=== PATIENT | female | born 1935 | race Caucasian/White ===

== ENCOUNTER 2019-02-12 21:31 | Inpatient (IN) | payer MEDICARE, OTHER ==
[~2019-02-12] VITALS: Ht 152.4 cm; Wt 64.0 kg
--- NOTE | 2019-02-12 22:03 | NUR ---
BIBSF. C/O "HAVING DIARRHEA AND WEAKNESS FOR ABOUT 2 WEEKS NOW, I WAS HERE 10 DAYS AGO FOR GLF" AOX4. AMBULATORY W.ASSISTANCE. -SOB -ACUTE DISTRESS.
[2019-02-12] MEDS ORDERED: ACETAMINOPHEN 325 MG TABLET PO ONE (22:30)
[2019-02-12] MEDS ORDERED: IV NS 0.9% 1,000 ML BAG IV ONE (22:30)
[2019-02-12 22:33] LABS: BASOPHILS % (AUTO) 0.5 % (0.0-2.0); EOSINOPHILS % (AUTO) 0.5 % (0.0-6.0); HEMATOCRIT 39 % (33-45); HEMOGLOBIN 13.3 g/dL (11.5-14.8); LYMPHOCYTES # (AUTO) 1.1 /CMM (0.8-4.8); LYMPHOCYTES % (AUTO) 12.5 % (20.0-44.0); MEAN CORPUSCULAR HGB CONC 34 g/dl (31.0-36.0); MEAN CORPUSCULAR VOLUME 99 fL (82-100); MONOCYTES # (AUTO) 1.1 /CMM (0.1-1.30); MONOCYTES % (AUTO) 12.6 % (2.0-12.0); NEUTROPHILS # (AUTO) 6.4 /CMM (1.8-8.9); NEUTROPHILS % (AUTO) 73.9 % (43.0-81.0); PLATELET COUNT (AUTO) 273 /CMM (150-450); RED BLOOD CELL COUNT(AUTO) 3.98 MIL/uL (4.0-5.2); WHITE BLOOD COUNT (AUTO) 8.7 K/uL (4.3-11.0)
[2019-02-12 22:47] LABS: CALCIUM, SERUM 8.7 mg/dL (8.5-10.1); CARBON DIOXIDE 27 mmol/L (21-32); CHLORIDE 104 mmol/L (98-107); CREATININE 0.8 mg/dL (0.6-1.3); GLUCOSE 154 mg/dL (74-106); POTASSIUM 3.2 mmol/L (3.5-5.1); SODIUM SERUM 141 mmol/L (136-145); UREA NITROGEN, BLOOD 14 mg/dL (7-18)
[2019-02-12 22:54] LABS: APPEARANCE,URINE Clear (CLEAR); BILIRUBIN,URINE SMALL (NEGATIVE); BLOOD, URINE Large Ery/uL (NEGATIVE); COLOR,URINE Yellow (YELLOW); KETONES,URINE 40 (NEGATIVE); LEUKOCYTE ESTERASE ,URINE Negative (NEGATIVE); NITRITE, URINE Negative (NEGATIVE); PH,URINE 5.5 (5.0-8.0); PROTEIN,URINE 100 mg/dl (NEGATIVE); UGLUCOSE Negative (NEGATIVE); UROBILINOGEN,URINE 0.2 EU/dL (0.2)
[2019-02-12 22:58] LABS: ALANINE AMINOTRANSFERASE 24 U/L (12-78); ALBUMIN 2.7 g/dL (3.4-5.0); ALKALINE PHOSPHATASE 68 U/L (46-116); ASPARTATE AMINOTRANSFERASE 25 U/L (15-37); BILIRUBIN,DIRECT 0.2 mg/dL (0.0-0.2); BILIRUBIN,TOTAL 0.8 mg/dL (0.2-1.0); LIPASE 144 U/L (73-393); TOTAL PROTEIN, SERUM 6.3 g/dL (6.4-8.2)
[2019-02-12] MEDS ORDERED: POTASSIUM CHLORIDE 20 MEQ TAB.PRT.SR PO ONE ×2 (23:00→23:11)
[2019-02-12] MEDS ORDERED: ACETAMINOPHEN 325 MG TABLET ONE (23:03)
[2019-02-12 23:05] LABS: BACTERIA,URINE Few /HPF (None Seen); SQUAMOUS EPITHELIAL CELL,UR Few /HPF (None Seen); WBC,URINE 0-2 /HPF (0-3)
[2019-02-13] MEDS ORDERED: FLAGYL/NS RTU 500 MG/100 ML PIGGYBACK IV ONE
[2019-02-13] MEDS ORDERED: METRONIDAZOLE 500MG/ NS 100ML 100 ML IV ONE (00:19)
[2019-02-13] MEDS ORDERED: CIPROFLOXACIN IV RTU 200 ML IV ONE (00:19)
[2019-02-13] MEDS ORDERED: ATOR20TA PO (00:41)
[2019-02-13] MEDS ORDERED: HYDR10SY16 PO (00:42)
[2019-02-13] MEDS ORDERED: FAMO40TA7 PO (00:43)
[2019-02-13] MEDS ORDERED: METF-440 PO (00:43)
[2019-02-13] MEDS ORDERED: PRED20TA PO (00:44)
[2019-02-13] MEDS ORDERED: FURO20TA4 PO (00:44)
[2019-02-13] MEDS ORDERED: HYDR-4076 PO (00:46)
--- NOTE | 2019-02-13 01:37 | NUR ---
REPORT GIVEN TO LEXIS DIAZ.
[2019-02-13 02:20] VITALS: BP 107/63
[2019-02-13] MEDS ORDERED: HYDROCODONE/APAP 5/325MG 1 EACH TABLET PO PRN (02:30)
[2019-02-13] MEDS ORDERED: IV NS 0.9% 500 ML IV ONE (02:30)
[2019-02-13] MEDS ORDERED: IV NS 0.9% 1,000 ML BAG IV SCH ×2 (02:30→04:00)
[2019-02-13] MEDS ORDERED: ACETAMINOPHEN 325 MG TABLET PO PRN (02:30)
[2019-02-13 02:36] VITALS: BP 107/63
--- NOTE | 2019-02-13 02:36 | NUR ---
ADMISSION 83 years old female, Frisian speaking, understand and speaks some [place]. Admitted for Diarrhea from home, had previous fall per son 2 weeks ago. Skin check done with ALLY Dang. Skin intact, patient is A/O x4, orientation to room, unit, staff. Place call light within reach, safety measure explained, verbalized understanding. Will cont to monitor.
[2019-02-13] MEDS ORDERED: IV NS 0.9% 1,000 ML BAG IV PRN (04:00)
[2019-02-13] MEDS ORDERED: IV NS 0.9% 1,000 ML IV PRN (04:00)
[2019-02-13 06:16] LABS: BASOPHILS % (AUTO) 0.2 % (0.0-2.0); EOSINOPHILS % (AUTO) 0.6 % (0.0-6.0); HEMATOCRIT 35 % (33-45); LYMPHOCYTES # (AUTO) 0.9 /CMM (0.8-4.8); LYMPHOCYTES % (AUTO) 8.1 % (20.0-44.0); MEAN CORPUSCULAR HGB CONC 34 g/dl (31.0-36.0); MEAN CORPUSCULAR VOLUME 99 fL (82-100); MONOCYTES # (AUTO) 1.4 /CMM (0.1-1.30); MONOCYTES % (AUTO) 12.9 % (2.0-12.0); NEUTROPHILS # (AUTO) 8.3 /CMM (1.8-8.9); NEUTROPHILS % (AUTO) 78.2 % (43.0-81.0); PLATELET COUNT (AUTO) 239 /CMM (150-450); RED BLOOD CELL COUNT(AUTO) 3.54 MIL/uL (4.0-5.2); WHITE BLOOD COUNT (AUTO) 10.6 K/uL (4.3-11.0)
[2019-02-13 06:17] LABS: CALCIUM, SERUM 8.2 mg/dL (8.5-10.1); CARBON DIOXIDE 23 mmol/L (21-32); CHLORIDE 107 mmol/L (98-107); CREATININE 0.5 mg/dL (0.6-1.3); GLUCOSE 132 mg/dL (74-106); POTASSIUM 3.4 mmol/L (3.5-5.1); SODIUM SERUM 143 mmol/L (136-145); UREA NITROGEN, BLOOD 10 mg/dL (7-18)
[2019-02-13 06:28] LABS: THYROID STIMULATING HORMONE 0.222 uIU/mL (0.358-3.74)
--- NOTE | 2019-02-13 06:28 | NUR ---
CHANGE OF SHIFT REPORT Patient in bed, stable oxygen saturation on RA. IVF infusing, maintained at 100 ml/hr, on IV antibiotic as scheduled. Episode of loose stool x1, patient reports abdominal discomfort after diarrhea. Cdiff stool pending result. Ambulates independently, standby assist. On clear liquids diet, denies nausea, no vomiting. Appears weak and slightly fatigue on ambulation, PT/OT to follow. Maintained safety.
[2019-02-13 08:00] VITALS: BP 105/69
--- NOTE | 2019-02-13 08:00 | NUR ---
RN NOTES RECEIVED PATIENT IN THE BED A/O X3/4 CYMRO SPEAKER FEMALE. PATIENT STABLE HAS NO ACUTE RESPIRATORY DISTRESS. PATIENT WAS COMPLAINING OF PAIN ON LEFT ARM. AND LEG BECAUSE OF FALL AT HOME REFUSED PAIN MEDICATION AT THIS TIME. INFUSING NS AT 100 ML/HR ON LEFT FA INTACT, SCHEDULED MEDICATION ADMINISTERED, V/S STABLE, PATIENT AMBULATORY, ASSIST BATHROOM, CALL LIGHT WITHIN TO REACH, SAFETY PRECAUTION MAINTAINED ALL THE TIME.
[2019-02-13] MEDS: METRONIDAZOLE 500MG/ NS 100ML 500 MG in PREMIX 1 EA IV SCH ×3 (08:38→23:28)
[2019-02-13] MEDS: PANTOPRAZOLE 40 MG TABLET.DR PO SCH (08:38)
--- NOTE | 2019-02-13 09:03 | NUR ---
RN NOTES ADMINISTERED TYLENOL 650 MG PO PRN FOR GENERALIZED PAIN 5/10 PER PATIENT REQUEST, CONTINUED MONITORING.
[2019-02-13] MEDS ORDERED: INSULIN REGULAR, HUMAN 100 UNIT/ML 3 ML VIAL SQ PRN (10:00)
[2019-02-13] MEDS ORDERED: POTASSIUM CHLORIDE 20 MEQ TAB.PRT.SR PO ONE (10:00)
[2019-02-13] MEDS ORDERED: DEXTROSE 50%-WATER 50 ML DISP.SYRIN IV PRN (10:00)
[2019-02-13] MEDS ORDERED: *INSULIN REGULAR(HUMULIN R)HUM 100 UNIT/ML VIAL SQ PRN (10:00)
[2019-02-13] MEDS ORDERED: CIPROFLOXACIN IV RTU 400 MG in PREMIX 1 EA IV SCH ×3 (11:30)
[2019-02-13] MEDS: BLOOD SUGAR DIAGNOSTIC 1 EACH STRIP VI SCH ×3 (11:40→22:43)
--- NOTE | 2019-02-13 11:57 | NUR ---
RN NOTES BS-109MG/DL, NO COVERAGE GIVEN, INFUSING POTASSIUM 20MEQ AT 100 ML/HR INTACT ON LEFT FA, MEDICATION WERE ADMINISTERED FOR PAIN EFFECTIVE. PATIENT RESTING IN THE BED. CALL LIGHT WITHIN TO REACH. SAFETY PRECAUTION MAINTAINED ALL THE TIME.
[2019-02-13] MEDS ORDERED: LEVOFLOXACIN 500 MG /D5W 100ML 500 MG in PREMIX 1 EA IV ONE (14:00)
[2019-02-13 16:00] VITALS: BP 129/89
--- NOTE | 2019-02-13 16:29 | NUR ---
RN NOTES ADMINISTERED MAALOX 30 MG PO PRN FOE STOMACHACHE.
[2019-02-13] MEDS ORDERED: MAG HYDROX/AL HYDROX/SIMETH 30 ML UDC PO PRN (16:30)
--- NOTE | 2019-02-13 18:29 | NUR ---
RN NOTES BS-102 MG/DL NO COVERAGE GIVEN, PATIENT VOMIT X1, INFUSING LEVOFLOXACIN 66.66 ML/HR ON LEFT AC LOREN INTACT, PATIENT REFUSED PAIN AT THIS TIME, DVT PUMP ON, PATIENT REFUSED DINNER, CALL LIGHT WITHIN TO REACH. SON NEXT TO THE BED, CONTINUED MONITORING. ENDORSED ONCOMING NURSE FOR PLAN OF CARE. COLLECTED STOOL FOR LEUKOCYTES.
[2019-02-13 20:00] VITALS: BP 135/71
[2019-02-14] VITALS (18 sets, daily range): BP systolic 123–162; BP diastolic 65–108
[2019-02-14 06:27] LABS: BASOPHILS % (AUTO) 0.3 % (0.0-2.0); HEMATOCRIT 37 % (33-45); HEMOGLOBIN 12.4 g/dL (11.5-14.8); LYMPHOCYTES # (AUTO) 1.4 /CMM (0.8-4.8); LYMPHOCYTES % (AUTO) 15.8 % (20.0-44.0); MEAN CORPUSCULAR HGB CONC 33 g/dl (31.0-36.0); MEAN CORPUSCULAR VOLUME 99 fL (82-100); MONOCYTES # (AUTO) 0.7 /CMM (0.1-1.30); MONOCYTES % (AUTO) 8.3 % (2.0-12.0); NEUTROPHILS # (AUTO) 6.5 /CMM (1.8-8.9); NEUTROPHILS % (AUTO) 73.6 % (43.0-81.0); PLATELET COUNT (AUTO) 249 /CMM (150-450); RED BLOOD CELL COUNT(AUTO) 3.74 MIL/uL (4.0-5.2); WHITE BLOOD COUNT (AUTO) 8.8 K/uL (4.3-11.0)
[2019-02-14 06:58] LABS: CALCIUM, SERUM 8.4 mg/dL (8.5-10.1); CARBON DIOXIDE 23 mmol/L (21-32); CHLORIDE 107 mmol/L (98-107); CREATININE 0.6 mg/dL (0.6-1.3); GLUCOSE 93 mg/dL (74-106); MAGNESIUM 1.8 mg/dL (1.8-2.4); PHOSPHORUS 2.1 mg/dL (2.5-4.9); POTASSIUM 3.8 mmol/L (3.5-5.1); SODIUM SERUM 143 mmol/L (136-145); UREA NITROGEN, BLOOD 6 mg/dL (7-18)
--- NOTE | 2019-02-14 07:35 | NUR ---
MS RN OPENING NOTE RECEIVED PATIENT IN BED. SLEEPING, EASILY AROUSED WITH VERBAL STIMULI, ORIENTED X4. ON ROOM AIR, TOLERATING WELL. IN NO APPARENT DISTRESS OR DISCOMFORT AT THIS TIME. RESPIRATIONS EVEN AND UNLABORED. DENIES PAIN AND SOB. PATIENT IS ABLE TO COMMUNICATE NEEDS. LEFT AC 20G, SL, PATENT AND INTACT. PATIENT KEPT CLEAN AND COMFORTABLE. SAFETY MEASURES IN PLACE, BED IN LOW LOCKED POSITION, SIDE RAILS UP X2, CALL LIGHT WITHIN EASY REACH. WILL CONTINUE TO MONITOR.
[2019-02-14] MEDS ORDERED: IV NS 0.9% 500 ML IV ONE (08:30)
[2019-02-14] MEDS: PANTOPRAZOLE 40 MG TABLET.DR PO SCH (08:31)
[2019-02-14] MEDS: K PHOS NEUTRAL 250 MG TABLET PO SCH ×3 (08:32→13:00)
[2019-02-14] MEDS: METRONIDAZOLE 500 MG TABLET PO SCH ×3 (08:32→13:00)
[2019-02-14] MEDS: BLOOD SUGAR DIAGNOSTIC 1 EACH STRIP VI SCH ×2 (08:46→11:32)
--- NOTE | 2019-02-14 08:55 | NUR ---
INFORMATION SENT: FACESHEET,H&P,IMAGING,24 HOURS REPORT,UR 02/13 INSURANCE NAME: [facility] FAX NUMBER: [phone] / [phone] FAX SENT
--- NOTE | 2019-02-14 12:15 | NUR ---
PATIENT EXPERIENCING NAUSEA AND ONE EPISODE OF VOMITING. REPORTED TO DR. VALDIVIA. ORDER RECEIVED TO ADMINISTER ZOFRAN 4MG IV Q6HR PRN. NOTED AND CARRIED OUT.
[2019-02-14] MEDS ORDERED: ONDANSETRON HCL/PF 4 MG/2 ML VIAL IV PRN (12:30)
--- NOTE | 2019-02-14 13:45 | NUR ---
ICU/RN: Responded to CARBIDE POWDER PROCESSOR turned Code Stroke called by Kimberley Caruso NP. Pt noted with flaccid L upper and lower extremity weakness, facial droop and decreasing level of consciousness. Accompanied pt to radiology for stat head CT. Transferred to ICU 259 for close monitoring post head CT.
--- NOTE | 2019-02-14 13:45 | NUR ---
MS RN NOTE BEFORE GIVING PATIENT'S AFTERNOON MEDICATIONS, PATIENT ASKED TO GO TO THE BATHROOM. PATIENT WENT TO THE BATHROOM WITH HER WALKER INDEPENDENTLY WITH STAND BY ASSIST AND WAS INSTRUCTED TO INFORM THE NURSE ONCE DONE. AROUND 1305 PATIENT CALLED FOR ASSISTANCE JULIET REFRACTORY MIXER WENT IN AND IMMEDIATELY CALLED FOR ASSISTANCE PATIENT WAS UNABLE TO STAND UP. PATIENT WAS RESPONSIVE, BUT PRESENTED WITH INCREASED CONFUSION SHE WOULDN'T FOLLOW COMMANDS. PATIENT WAS NOTED TO BE UNABLE TO MOVE HER LEFT ARM. IMMEDIATELY CALLED COUNTY ADVISER AND FOR ASSISTANCE TO PUT THE PATIENT IN BED. VITAL SIGNS WAS TAKEN IMMEDIATELY, BLOOD SUGAR OBTAINED 99. PATIENT WAS PLACED ON TELE MONITORING AND ON 15L O2 VIA NON-REBREATHER MASK PATIENT'S O2 SAT WAS 88 AND WAS BECOMING MORE DIFFICULT TO AROUSE. PATIENT'S MONITOR WAS SHOWING A-FIB AND HR OF113. BP: 168/91. RAPID RESPONSE WAS CALLED AT 1313. KATY ARMANDO SHEET WRITER WALKED IN TO ASSESS THE PATIENT AND ORDERED TO CALL CODE STROKE AND STAT HEAD CT. CODE STROKE WAS CALLED AT 1315. FIRST CALL MADE TO GET A HOLD OF DR. SKIP MD AT 1315, NO ANSWER. 1316 RAPID RESPONSE AT BEDSIDE. UPPER SHAPER AT BEDSIDE. PATIENT PRESENTS WITH DECREASED LOC, MILD LEFT SIDED FACIAL DROOPING. FLACCID LEFT SIDED UPPER AND LOWER EXTREMITIES. [address] WAS TAKEN TO CT. 1319 SECOND CALL WAS ATTEMPTED TO GET A HOLD OF DR. SKIP MD, NO ANSWER. AT 1320 TELE STROKE WAS ACTIVATED, PATIENT IN CT. 1325 TELE STROKE MD CALLED BACK AND STATED HE WILL REVIEW MEDICAL RECORD AND WILL CALL BACK TO GET MD AT THE BEDSIDE WITH THE PATIENT. 1326 PATIENT WAS TRANSFERRED TO ICU ROOM 259. REPORT GIVEN TO ICU NURSES RADHA AND BENJAMÍN AT BEDSIDE FOR FRAN. PRIOR TO THIS EVENT PATIENT WAS LAYING IN BED, COMFORTABLY, AT BASELINE LOC, ALERT AND ORIENTED X4, NO WEAKNESS OBSERVED. SCD PUMPS ON FOR DVT PROPHYLAXIS. SON WAS AT BEDSIDE, MULTIPLE VISITORS THROUGHOUT THE DAY.
--- NOTE | 2019-02-14 13:55 | NUR ---
ICU/RN: Dr Maloney, Dr Lopez, and sancho Khan at bedside discussing plan of care. Per son, pt does not wish to pursue aggressive treatments and transfer to [facility] for stroke management. Pt increasingly somnolent and altered, discussed need for possible intubation to protect airway. Per son and pt - DNR/DNI.
[2019-02-14 13:56] LABS: BASOPHILS % (AUTO) 0.3 % (0.0-2.0); HEMATOCRIT 40 % (33-45); HEMOGLOBIN 13.6 g/dL (11.5-14.8); LYMPHOCYTES # (AUTO) 0.9 /CMM (0.8-4.8); LYMPHOCYTES % (AUTO) 10.5 % (20.0-44.0); MEAN CORPUSCULAR HGB CONC 34 g/dl (31.0-36.0); MEAN CORPUSCULAR VOLUME 100 fL (82-100); MONOCYTES # (AUTO) 0.6 /CMM (0.1-1.30); MONOCYTES % (AUTO) 6.6 % (2.0-12.0); NEUTROPHILS # (AUTO) 7.1 /CMM (1.8-8.9); NEUTROPHILS % (AUTO) 81.6 % (43.0-81.0); PLATELET COUNT (AUTO) 264 /CMM (150-450); RED BLOOD CELL COUNT(AUTO) 4.06 MIL/uL (4.0-5.2); WHITE BLOOD COUNT (AUTO) 8.8 K/uL (4.3-11.0)
[2019-02-14] MEDS ORDERED: LEVOFLOXACIN 250 MG /D5W 50 ML 250 MG in PREMIX 1 EA IV SCH (14:00)
[2019-02-14 14:03] LABS: CALCIUM, SERUM 8.5 mg/dL (8.5-10.1); CARBON DIOXIDE 23 mmol/L (21-32); CHLORIDE 107 mmol/L (98-107); CREATININE 0.6 mg/dL (0.6-1.3); GLUCOSE 124 mg/dL (74-106); POTASSIUM 3.9 mmol/L (3.5-5.1); SODIUM SERUM 140 mmol/L (136-145); UREA NITROGEN, BLOOD 6 mg/dL (7-18)
[2019-02-14] MEDS ORDERED: ALTEPLASE 100 MG in WATER FOR INJECTION,STERILE 100 ML IV ONE (14:20)
--- NOTE | 2019-02-14 14:30 | NUR ---
ICU/RN: After lengthy dw son Erin and pt, finally agrees to TPA and transfer to [facility] for higher level of care. Dr Lopez and Dr Maloney on conference with family and health care staff. Per son, continue aggressive treatment, however keep pt DNR/DNI. Informed Dr Lopez of pt and family wishes, may put on rescue BiPAP should mental status continue to decline.
[2019-02-14] MEDS ORDERED: CT SWABBABLE VALVE TRANS SET 1 EA INFUS.SET MC ONE (14:45)
[2019-02-14] MEDS ORDERED: IV NS 0.9% 250 ML IV ONE (14:45)
[2019-02-14] MEDS ORDERED: IOHEXOL-350 100 ML VIAL IV ONE (14:46)
[2019-02-14 14:55] LABS: BAND % (MANUAL) 8 % (0.0-5.0); EOSINOPHILS % (MANUAL) 2 % (0-4); LYMPHOCYTES % (MANUAL) 9 % (16-48); MONOCYTES % (MANUAL) 2 % (0-11.0); NEUTROPHILS % (MANUAL) 77 (42-76); REACTIVE LYMPHOCYTES 2 % (0-0)
--- NOTE | 2019-02-14 15:15 | NUR ---
ICU/RN: Dr Lopez on the phone with receiving interventional radiologist at [facility]. Informed unable to perform CTA; TPA initiated and requires additional IV access. Per MD, will PSJ will continue care.
--- NOTE | 2019-02-14 15:30 | NUR ---
ICU/RN: TPA dose completed, no adverse reactions noted. Pt noted with improvement in mental status and now easily arousable to speech. Family at bedside. [facility] team at bedside for transfer. Report given to John. Pt and family educated on POC and interventions to expect upon transfer. Son verbalized understanding. Pt transferred with belongings in stable condition.
== END 2019-02-14 15:30 | disposition short-term general hospital (02) | DRG 391 ==
LOC: ER 21:40 → MED 02-13 01:45 → ICU 02-14 13:34
PROVIDERS: ADMIT Internal Medicine; ATTEND Internal Medicine
DX: A09 Infectious gastroenteritis and colitis, unspecified (principal); I63.9 Cerebral infarction, unspecified; G81.91 Hemiplegia, unspecified affecting right dominant side; E78.5 Hyperlipidemia, unspecified; E86.0 Dehydration; E87.6 Hypokalemia; R29.720 NIHSS score 20; I10 Essential (primary) hypertension; E11.9 Type 2 diabetes mellitus without complications; E83.39 Other disorders of phosphorus metabolism; I48.91 Unspecified atrial fibrillation; Z91.14 Patient's other noncompliance with medication regimen; R29.810 Facial weakness
CPT/HCPCS: 36415; 70450-TC; 71045-TC; 80048-TC; 80076-TC; 81000-TC; 82962-TC; 83690-TC; 83735-TC; 84100-TC; 84443-TC; 84484-TC; 85025-TC; 85730-TC; 86850-TC; 87081-TC; 89055; 93970-TC; A4216; G0378; J0744; J1815; J1956; J2405; J2997; J3480; J3490; J7030; J7040; J7050; Q9967

== ENCOUNTER 2020-04-13 19:55 | Emergency (ER) | payer MEDICARE ==
[~2020-04-13] VITALS: Ht 157.5 cm; Wt 65.3 kg
[~2020-04-13 19:55] MED LIST: ATOR20TA PO; FAMO40TA7 PO; FURO20TA4 PO; HYDR-4076 PO; HYDR10SY16 PO; METF-440 PO; PRED20TA PO
[2020-04-13] MEDS: HYDROCODONE/APAP 5/325MG 1 EACH TABLET PO ONE (20:00)
--- NOTE | 2020-04-13 20:05 | NUR ---
PT BIB [facility] 839 WITH A C/O BACK AND NECK PAIN S/P TRIP AND FALL. PT WAS IN HER GARDEN, WALKED BACKWARD A FEW STEPS AND FELL BACKWARDS ON THE STEP. PT HIT HER BACK FIRST AND THEN HER HEAD. PT ARRIVED IN C-SPINE AND C-COLLAR. PT WAS CHANGED INTO A GOWN AND PLACED ON THE MONITOR/ POX. PT IS AA&O X4. NO KO. PT HAS STRONG BILATERAL HAND MANAGER BASKETBALL (5/5) AND BILATERAL DORSI FLEX 5/5. NO NUMBNESS IN BLE NOTED.
--- NOTE | 2020-04-13 20:11 | NUR ---
PT LEFT FOR CT VIA GURNEY.
[2020-04-13] MEDS ORDERED: HYDROCODONE/APAP 5/325MG 1 EACH TABLET ONE (20:26)
--- NOTE | 2020-04-13 20:26 | NUR ---
PT RETURNED FROM CT
--- NOTE | 2020-04-13 21:11 | NUR ---
PT IN BED RESTING. PROVIDED WITH BLANKET.
--- NOTE | 2020-04-13 21:15 | NUR ---
PT WAS ADJUSTED IN BED AND ASSISTED TO A SITTING POSITION. PT WAS IN PAIN, BUT PAIN SUBSIDED WITH NEW POSITION. PT WAS ASSISTED TO A STANDING POSITION AND PT TOLERATED STANDING AND TAKING SHORT STEPS. PT HAS A WALKER AT HOME THAT SHE USES. PT WAS ASSISTED BACK TO A SITTING POSITION ON SIDE OF BED. PT REC'D 2 ICE PACKS AND WAS ASSISTED IN GETTING DRESSED. PT'S FAMILY IS IN THE LOBBY AND WERE NOTIFIED THAT PT WOULD BE DISCHARGED HOME. FAMILY IS TAKING PT HOME. PT WAS ASSISTED TO THE WHEELCHAIR. NO BRUISES NOTED ON PT'S BACK. PT REFUSED TO WEAR THE SOFT NECK COLLAR HOME. COLLAR WAS REMOVED AND PLACED IN THE PT'S BELONGING BAG.
--- NOTE | 2020-04-13 21:25 | NUR ---
Patient discharged to home in stable condition. Written and verbal after care instructions given. Patient verbalizes understanding of instruction AND RX. PT'S FAMILY ALSO EXPRESSED VERBAL UNDERSTANDING OF INSTRUCTIONS AND RX. PT WAS TAKEN TO THE CAR VIA WC AND ASSISTED INTO THE PASSENGER SEAT. VSS.
[2020-04-13 21:42] VITALS: BP 130/78
== END 2020-04-13 21:43 | disposition home or self-care (01) ==
LOC: ER 19:58
DX: S16.1XXA Strain of muscle, fascia and tendon at neck level, initial encounter (principal); S09.8XXA Other specified injuries of head, initial encounter; M25.511 Pain in right shoulder; M25.512 Pain in left shoulder; I10 Essential (primary) hypertension; E78.5 Hyperlipidemia, unspecified; E11.9 Type 2 diabetes mellitus without complications; Z86.73 Personal history of transient ischemic attack (TIA), and cerebral infarction without residual deficits; Z98.890 Other specified postprocedural states; Z60.2 Problems related to living alone; Z79.899 Other long term (current) drug therapy; W18.39XA Other fall on same level, initial encounter; Y93.89 Activity, other specified; Y92.89 Other specified places as the place of occurrence of the external cause; Y99.8 Other external cause status
CPT/HCPCS: 70450; 71045; 72125; 99285; L0172